=== PATIENT | male | born 1950 | race Caucasian/White ===

== ENCOUNTER 2019-05-08 08:42 | Emergency (ER) | payer OTHER ==
[~2019-05-08] VITALS: Ht 175.3 cm; Wt 74.4 kg
[~2019-05-08 08:42] MED LIST: ASPI325; HYDACE10B PO; OXYACE5T PO; PRED20 PO
[2019-05-08] MEDS ORDERED: Norco 7.5-3251 EACH PO (10:27)
== END 2019-05-08 11:15 | disposition home or self-care (01) ==
LOC: ER 08:42
DX: R51 Headache (principal); I10 Essential (primary) hypertension; R73.03 Prediabetes; F17.210 Nicotine dependence, cigarettes, uncomplicated
CPT/HCPCS: 99283

== ENCOUNTER 2019-08-29 00:38 | Day surgery (SDC) | payer OTHER ==
[~2019-08-29 00:38] MED LIST changes: +Norco 7.5-3251 EACH PO
== END 2019-08-29 23:14 | disposition home or self-care (01) ==
LOC: WOUND 00:38
DX: S68.12 Partial traumatic metacarpophalangeal amputation of other and unspecified finger (principal)

== ENCOUNTER 2019-09-05 00:39 | Day surgery (SDC) | payer OTHER | END 2019-09-05 23:17 | disposition home or self-care (01) | LOC: WOUND 00:39 | DX: S68.12 Partial traumatic metacarpophalangeal amputation of other and unspecified finger (principal); X58.XXXD Exposure to other specified factors, subsequent encounter ==

== ENCOUNTER 2019-09-11 00:35 | Day surgery (SDC) | payer OTHER | END 2019-09-11 22:33 | disposition home or self-care (01) | LOC: WOUND 00:35 | DX: S68.12 Partial traumatic metacarpophalangeal amputation of other and unspecified finger (principal); X58.XXXD Exposure to other specified factors, subsequent encounter; G43.909 Migraine, unspecified, not intractable, without status migrainosus | CPT/HCPCS: G0463 ==

== ENCOUNTER 2019-09-25 00:20 | Day surgery (SDC) | payer OTHER | END 2019-09-25 22:50 | disposition home or self-care (01) | LOC: WOUND 00:20 | DX: S68.12 Partial traumatic metacarpophalangeal amputation of other and unspecified finger (principal); X58.XXXD Exposure to other specified factors, subsequent encounter | CPT/HCPCS: G0463 ==

== ENCOUNTER 2022-01-11 08:34 | Emergency (ER) | payer OTHER ==
[~2022-01-11] VITALS: Ht 175.3 cm; Wt 81.7 kg
[2022-01-11] MEDS ORDERED: Aspirin325 MG PO (10:40)
[2022-01-11] MEDS ORDERED: Norco 7.5-3251 EACH PO (10:59)
== END 2022-01-11 11:22 | disposition home or self-care (01) ==
LOC: ER 08:34
DX: S32.019A Unspecified fracture of first lumbar vertebra, initial encounter for closed fracture (principal); W11.XXXA Fall on and from ladder, initial encounter; I10 Essential (primary) hypertension; R73.03 Prediabetes; F17.210 Nicotine dependence, cigarettes, uncomplicated; Z79.82 Long term (current) use of aspirin
CPT/HCPCS: 72100; 72170; 99283-25; A9270

== ENCOUNTER 2022-07-19 11:22 | Inpatient (IN) | payer OTHER ==
[~2022-07-19] VITALS: Ht 172.7 cm; Wt 64.1 kg
[~2022-07-19 11:22] MED LIST changes: +Aspirin325 MG PO
[2022-07-19 12:02] LABS: BASOPHILS ABSOLUTE AUTO 0.06 K/mm3 (0.00-0.23); BASOPHILS PERCENT AUTO 1 % (0-2); EOSINOPHILS ABSOLUTE AUTO 0.34 K/mm3 (0.00-0.68); EOSINOPHILS PERCENT AUTO 3 % (0-6); Hematocrit 29.1 % (37.0-53.0); Hemoglobin 7.5 g/dL (13.5-17.5); IMMATURE GRAN ABSOLUTE AUTO 0.04 K/mm3 (0.00-0.10); IMMATURE GRAN PERCENT AUTO 0 % (0-1); LYMPHOCYTES ABSOLUTE AUTO 2.09 K/mm3 (0.84-5.20); LYMPHOCYTES PERCENT AUTO 21 % (21-46); MONOCYTES PERCENT AUTO 9 % (4-13); Mean Corpuscular HGB Conc 25.8 g/dL (31.5-36.5); Mean Corpuscular Volume 66 fL (80-100); NEUTROPHILS ABSOLUTE AUTO 6.54 K/mm3 (1.96-9.15); NEUTROPHILS PERCENT AUTO 66 % (41-73); NRBC ABSOLUTE 0.02 K/mm3 (0.00-0.02); NRBC Auto 0.2 /100 WBC (0.0-0.2); Platelet Count 203 K/mm3 (150-400); RDW Coefficient Variation 18.7 % (11.7-14.2); RDW Standard Deviation 43.9 fL (35.1-46.3); Red Blood Cell Count 4.41 M/mm3 (4.30-5.90); White Blood Cell Count 9.97 K/mm3 (4.00-11.30)
[2022-07-19 12:21] LABS: Albumin, Blood 3.9 g/dL (3.4-5.0); Albumin/Globulin Ratio 1.1 (0.8-1.8); Bilirubin, Total 0.5 mg/dL (0.1-1.0); Bun/Creatinine Ratio 26.6 (12.0-20.0); Calcium, Blood 8.9 mg/dL (8.5-10.1); Creatinine, Blood 0.75 mg/dL (0.60-1.20); Globulin, Blood 3.5 g/dL (2.2-4.0); Potassium, Blood 3.9 mmol/L (3.5-5.5); Total Protein, Blood 7.4 g/dL (6.4-8.2)
[2022-07-19 12:25] LABS: PCO2 Arterial 32.5 mmHg (35-45); PO2 Arterial 76.4 mmHg (80-100); pH Blood Arterial 7.44 (7.35-7.45)
[2022-07-19 16:05] LABS: Hematocrit 28.3 % (37.0-53.0); Hemoglobin 7.6 g/dL (13.5-17.5)
[2022-07-19 16:23] LABS: Percent Saturation 26.7 % (20.0-50.0)
[2022-07-19 17:16] VITALS: BP 119/81
--- NOTE | 2022-07-19 18:15 | NUR ---
PT ARRIVED TO PCU FROM ER VIA GURNEY AT APPROXIMATELY 1700. PT ABLE TO STAND AND TRANSFER TO THE BED WITH MINIMAL ASSISTANCE. PT HAS AN 18 GAUGE IV IN THE RIGHT AC THAT IS INFUSING PROTONIX AT 10 ML/HR. PT RECEIVED 1 UNIT OF PRBC IN THE ER WITH NO COMPLICATIONS. PT LUNG SOUNDS CLEAR T/O LOBES, RESPIRATIONS EVEN AND UNLABORED. PT HR IN THE 60'S-70'S IN NORMAL SINUS RHYTHM WITH NO C/O CHEST PAIN OR PRESSURE AT THIS TIME. PT HAS A MURMUR WHICH HE STATES HAS BEEN PRESENT SINCE CHILDHOOD. CARDIOLOGY CONSULT PLACED AND DR. ROWLAND AT BEDSIDE TO ASSESS. PT HAD AN ECHO DONE WITH NO RESULTS AT THIS TIME. PT ALSO HAD GI CONSULT WITH PLAN TO HAVE AN EGD DONE TOMORROW. PT ON CLEAR LIQUID DIET AT THIS TIME. NO REPORTED BLACK TARRY STOOLS SINCE ARRIVAL. PT ORIENTED TO ROOM AND EDUCATED ON THE USE OF THE CALL LIGHT AND CALLING FOR ASSISTANE TO GET UP. BED LOW AND LOCKED WITH BED ALARM IN PLACE. WILL CONTINUE TO MONITOR AND GIVE REPORT TO THE ONCOMING NOC SHIFT NURSE.
[2022-07-19 19:30] VITALS: BP 113/83
[2022-07-19 23:12] VITALS: BP 98/58
[2022-07-19 23:18] LABS: Hemoglobin 7.8 g/dL (13.5-17.5)
[2022-07-20 04:09] VITALS: BP 102/76
--- NOTE | 2022-07-20 05:45 | NUR ---
SHIFT SUMMARY: 1929- Patient complains of leg cramps and back pain. Declines tylenol, stating that "it won't work". Medicated with tramadol which provided adequate pain relief. Critical troponin received- [address] Wilkerson notified and order to recheck in the AM received. Patient denies chest pain, shortness of breath, or other related symptoms. No evidence of GI bleeding and 2300 H&H trending up. Protonix drip running, vitals stable.
[2022-07-20 05:57] LABS: BASOPHILS ABSOLUTE AUTO 0.07 K/mm3 (0.00-0.23); BASOPHILS PERCENT AUTO 1 % (0-2); EOSINOPHILS ABSOLUTE AUTO 0.39 K/mm3 (0.00-0.68); EOSINOPHILS PERCENT AUTO 6 % (0-6); Hematocrit 30.3 % (37.0-53.0); Hemoglobin 8.1 g/dL (13.5-17.5); IMMATURE GRAN ABSOLUTE AUTO 0.01 K/mm3 (0.00-0.10); IMMATURE GRAN PERCENT AUTO 0 % (0-1); LYMPHOCYTES ABSOLUTE AUTO 1.84 K/mm3 (0.84-5.20); LYMPHOCYTES PERCENT AUTO 26 % (21-46); MONOCYTES ABSOLUTE AUTO 0.77 K/mm3 (0.16-1.47); MONOCYTES PERCENT AUTO 11 % (4-13); Mean Corpuscular HGB 17.9 pg (26.0-34.0); Mean Corpuscular HGB Conc 26.7 g/dL (31.5-36.5); Mean Corpuscular Volume 67 fL (80-100); NEUTROPHILS ABSOLUTE AUTO 3.99 K/mm3 (1.96-9.15); NEUTROPHILS PERCENT AUTO 57 % (41-73); Platelet Count 158 K/mm3 (150-400); RDW Coefficient Variation 19.4 % (11.7-14.2); RDW Standard Deviation 45.7 fL (35.1-46.3); Red Blood Cell Count 4.52 M/mm3 (4.30-5.90); White Blood Cell Count 7.07 K/mm3 (4.00-11.30)
[2022-07-20 06:20] LABS: Bun/Creatinine Ratio 19.8 (12.0-20.0); Calcium, Blood 8.6 mg/dL (8.5-10.1); Creatinine, Blood 0.81 mg/dL (0.60-1.20); Potassium, Blood 3.9 mmol/L (3.5-5.5)
[2022-07-20 08:00] VITALS: BP 116/88
[2022-07-20 12:11] VITALS: BP 108/75
[2022-07-20 13:15] LABS: Hematocrit 32.5 % (37.0-53.0); Hemoglobin 8.9 g/dL (13.5-17.5)
[2022-07-20 16:13] VITALS: BP 111/80
--- NOTE | 2022-07-20 17:10 | NUR ---
END OF SHIFT PT A&O X4. VSS. SPO2 > 92%. NORMAL SINUS RHYTHM 70'S-80'S. PT C/O HEADACHE AND LEG PAIN WITH REPORT OF IMPROVEMENT WITH PRN PAIN MEDICATION. NO C/O CP. PT WITH NO SIGNS OF BLEEDING THIS SHIFT. PROTONIX GTT INFUSING PER ORDERS. PT AWAITING TRANSFER TO ANOTHER FACILITY PER [facility].
[2022-07-20 20:10] VITALS: BP 101/69
[2022-07-21 00:44] VITALS: BP 96/72
[2022-07-21 03:46] VITALS: BP 99/70
[2022-07-21 04:20] LABS: BASOPHILS ABSOLUTE AUTO 0.06 K/mm3 (0.00-0.23); BASOPHILS PERCENT AUTO 1 % (0-2); EOSINOPHILS ABSOLUTE AUTO 0.27 K/mm3 (0.00-0.68); EOSINOPHILS PERCENT AUTO 3 % (0-6); Hematocrit 31.4 % (37.0-53.0); Hemoglobin 8.6 g/dL (13.5-17.5); IMMATURE GRAN ABSOLUTE AUTO 0.04 K/mm3 (0.00-0.10); IMMATURE GRAN PERCENT AUTO 0 % (0-1); LYMPHOCYTES ABSOLUTE AUTO 1.61 K/mm3 (0.84-5.20); LYMPHOCYTES PERCENT AUTO 16 % (21-46); MONOCYTES ABSOLUTE AUTO 1.03 K/mm3 (0.16-1.47); MONOCYTES PERCENT AUTO 10 % (4-13); Mean Corpuscular HGB Conc 27.4 g/dL (31.5-36.5); Mean Corpuscular Volume 66 fL (80-100); NEUTROPHILS ABSOLUTE AUTO 7.26 K/mm3 (1.96-9.15); NEUTROPHILS PERCENT AUTO 71 % (41-73); Platelet Count 197 K/mm3 (150-400); RDW Coefficient Variation 19.9 % (11.7-14.2); RDW Standard Deviation 44.7 fL (35.1-46.3); Red Blood Cell Count 4.78 M/mm3 (4.30-5.90); White Blood Cell Count 10.27 K/mm3 (4.00-11.30)
[2022-07-21 04:21] LABS: Mean Platelet Volume 10.5 fL (9.1-12.4)
[2022-07-21 04:36] LABS: Albumin, Blood 3.7 g/dL (3.4-5.0); Anion Gap 4 mmol/L (6-16); Blood Urea Nitrogen 12 mg/dL (8-24); Bun/Creatinine Ratio 15.2 (12.0-20.0); CO2, Blood 25 mmol/L (21-32); Chloride, Blood 107 mmol/L (98-108); Creatinine, Blood 0.79 mg/dL (0.60-1.20); Glomerular Filtration Rate 96 (60-); Glucose, Blood 100 mg/dL (70-99); Phosphorus, Blood 3.1 mg/dL (2.5-4.9); Potassium, Blood 3.9 mmol/L (3.5-5.5); Sodium, Blood 136 mmol/L (136-145)
--- NOTE | 2022-07-21 04:53 | NUR ---
VSS, PROTONIX GTT 8MG/HR, NO ISSUES OVERNIGHT, TMAX 99.9
[2022-07-21 08:21] VITALS: BP 91/69
[2022-07-21 11:44] VITALS: BP 97/73
[2022-07-21 13:28] VITALS: BP 97/73
[2022-07-21 15:46] VITALS: BP 97/73
--- NOTE | 2022-07-21 16:31 | NUR ---
DISCHARGE NOTE PT A&Ox4. VSS. SPO2> 92%. NORMAL SINUS RHYTHM 70'S-80'S. NO C/O CHEST PAIN OR PRESSURE. PT COBRA TRANSFER TO [facility] BY EMS AT APPROX 1415. PROTONIX GTT INFUSING UPON TRANSFER. REPORT CALLED TO ACCEPTING RN.
== END 2022-07-21 14:10 | disposition short-term general hospital (02) | DRG 812 ==
LOC: ER 11:22 → ERHOLD 14:51 → PCU 14:51 → EDBEDREQ 15:33 → PCU 17:01
PROVIDERS: Emergency Medicine; ADMIT Family Medicine
PROC: 30233N1 Transfusion of Nonautologous Red Blood Cells into Peripheral Vein, Percutaneous Approach (ICD-10-PCS; principal; 2022-07-19)
PROC: 4A033R1 Measurement of Arterial Saturation, Peripheral, Percutaneous Approach (ICD-10-PCS; 2022-07-19)
DX: D64.89 Other specified anemias (principal); I24.8 Other forms of acute ischemic heart disease; K92.2 Gastrointestinal hemorrhage, unspecified; D50.9 Iron deficiency anemia, unspecified; I35.0 Nonrheumatic aortic (valve) stenosis; I77.89 Other specified disorders of arteries and arterioles; I25.10 Atherosclerotic heart disease of native coronary artery without angina pectoris; G43.909 Migraine, unspecified, not intractable, without status migrainosus; F17.210 Nicotine dependence, cigarettes, uncomplicated; R01.1 Cardiac murmur, unspecified; R73.03 Prediabetes; M51.9 Unspecified thoracic, thoracolumbar and lumbosacral intervertebral disc disorder; I50.9 Heart failure, unspecified; I11.0 Hypertensive heart disease with heart failure; Z79.82 Long term (current) use of aspirin; Z98.890 Other specified postprocedural states; Z89.022 Acquired absence of left finger(s); Z71.6 Tobacco abuse counseling; T39.015A Adverse effect of aspirin, initial encounter
CPT/HCPCS: 36415; 36430; 36600; 71046; 80048; 80053; 80069; 82272; 82607; 82728; 82746; 82803; 83540; 83550; 83880; 84484; 85014; 85018; 85025; 86850; 86900; 86901; 86923; 93005; 93010; 93306; 96374; 99285-25; A9270; C9113; J7030; P9016

== ENCOUNTER 2022-08-28 10:31 | Emergency (ER) | payer OTHER ==
[~2022-08-28] VITALS: Ht 172.7 cm; Wt 67.6 kg
[2022-08-28 11:06] VITALS: BP 107/94
[2022-08-28] MEDS ORDERED: Benadryl 50 mg50 MG PO (14:17)
[2022-08-28] MEDS ORDERED: Pepcid20 MG PO (14:17)
[2022-08-28] MEDS ORDERED: Prednisone20 MG PO (14:17)
== END 2022-08-28 14:21 | disposition home or self-care (01) ==
LOC: ER 10:31
DX: T78.40XA Allergy, unspecified, initial encounter (principal); K13.0 Diseases of lips; I10 Essential (primary) hypertension; F17.210 Nicotine dependence, cigarettes, uncomplicated; Z79.899 Other long term (current) drug therapy; X58.XXXA Exposure to other specified factors, initial encounter
CPT/HCPCS: A9270; J1100

== ENCOUNTER → 2024-04-16 | Outpatient (CLI) | payer OTHER ==
[~2024-04-16] MED LIST changes: +Benadryl 50 mg50 MG PO; +Pepcid20 MG PO; +Prednisone20 MG PO
[2024-04-16 14:49] LABS: Stool Occult Bld Immuno 1 Negative (NEGATIVE)
== END ==
LOC: LAB 11:07 → LAB SHORT 11:07
PROVIDERS: Nurse Practitioner Family
DX: Z12.11 Encounter for screening for malignant neoplasm of colon (principal)
CPT/HCPCS: G0328